=== PATIENT | female | born 1950 | race Caucasian/White ===

== ENCOUNTER 2016-08-01 02:46 | Emergency (ER) | payer MEDICARE ==
[~2016-08-01 02:46] MED LIST: LOPRESSOR DPS100 MG PO; MAPAP PM (TYLEN1 TAB PO; NORCO 5-325 TA1 EACH PO; OMNICEF DPS300 MG PO; PERCOCET 5 DPS1 TAB PO; PYRIDIUM200 MG PO; THERA1 EACH PO; ULTRAM DPS50 MG PO; ZOFRAN4 MG PO
--- NOTE | 2016-08-02 00:40 | ER ---
ADMIT: 08/01/2016 RM/LOC: ER [facility] MR#: [id number] 2620 [facility] [address] [place] [phone] LON LEDBETTER [address] [place] [address] Emergency Room Report SEX: F AGE: 66 : 1950 DATE: 08/01/2016 TIME: 0246 Please refer to my T-sheet for complete H and P. HISTORY OF PRESENT ILLNESS: Briefly, the patient is a 66-year-old who comes in with flank pain for 5 hours. She has had multiple kidney stones, multiple lithotripsies. She states this feels like it is left flank she had a urine infection a month ago. She rates it 7/10, sharp pain. PHYSICAL EXAMINATION: VITAL SIGNS: Stable. Blood pressure is little high 187/76. GENERAL: Mild distress. HEENT: Grossly normal. LUNGS: Clear. HEART: Regular. ABDOMEN: She is tender in the left flank. EMERGENCY DEPARTMENT COURSE: We ordered an IV, was going to give her medications. She went to the bathroom, gave us a sample, where she passed what appeared to be a very firm object, possibly mucus, however, could not rule out what appeared to be like a worm-like structure. Her pain completely resolved at that point. Her CBC came back normal except white count 11.5. Chemistries normal except glucose 198. UA normal except 69 white cells, 348 red cells, 3+ blood. I gave her dose of Cipro and she was ready for discharge. Her pain was gone. ASSESSMENT: 1. Flank pain. 2. Hematuria. 3. Urine pathological structure that is pending pathology. PLAN: We will put her on Cipro 500 b.i.d. for 7 days. Fluids. I want her to follow up the path report with Dr. Mccain. Return here if worse. Thomas Zavala MD/ makayla JOB #: [id number] CC: Thomas Zavala MD, Attending Physician Nighat Mccain MD, Family Physician
[2016-08-07] MEDS ORDERED: GLUCOPHAGE-DPS500 MG PO (11:15)
[2016-08-07] MEDS ORDERED: DULOXETINE HCL30 MG PO (11:16)
[2016-08-07] MEDS ORDERED: CIPRO DPS500 MG PO (11:17)
[2016-08-07] MEDS ORDERED: MAPAP PM (TYLEN1 TAB PO (11:17)
[2016-08-07] MEDS ORDERED: PERDIEM15 MG PO (11:17)
[2016-08-31] MEDS ORDERED: AZO STANDARD95 MG PO (13:33)
[2016-08-31] MEDS ORDERED: ZOFRAN8 MG PO (13:34)
[2016-08-31] MEDS ORDERED: OMNICEF DPS300 MG PO (13:34)
== END 2016-08-01 04:15 | disposition home or self-care (01) ==
LOC: ER 02:46
DX: R31.9 Hematuria, unspecified (principal); E11.9 Type 2 diabetes mellitus without complications; I10 Essential (primary) hypertension; Z90.710 Acquired absence of both cervix and uterus; Z90.49 Acquired absence of other specified parts of digestive tract

== ENCOUNTER 2016-08-03 12:31 | Inpatient (IN) | payer MEDICARE ==
[~2016-08-03] VITALS: Ht 157.5 cm; Wt 103.5 kg
--- NOTE | 2016-08-07 06:52 | CO ---
ADMIT: 08/03/2016 RM/LOC: 529 [facility] MR#: [id number] [address] [address] LON MARQUEZ [address] [place] [address] Consultation SEX: F AGE: 66 : 1950 DATE OF CONSULTATION: 08/06/2016 ATTENDING PHYSICIAN: Nighat Mccain MD CONSULTING PHYSICIAN: Troy Gimenez MD PROBLEM: Left flank pain. HISTORY OF PRESENT ILLNESS: This is a 66-year-old female, who is a long time patient of ours having been followed for a large stone within the left renal unit, which she has been reluctant to treat up until now. She presented to the emergency room on 08/03/2016, complaining of severe left flank pain, which had been going on for the past 48 hours prior to that. A renal colic CT demonstrated a large 1.5 x 2 cm stone in the left renal pelvis near the left ureteropelvic junction. No hydronephrosis was noted. This was unchanged in size and position since her last study on 10/27/2015. There was some mild dilation of the renal pelvis and proximal ureter, but again, this appeared to be stable. She was passing some large mucous plugs. Since her hospitalization, she has went on Cipro antibiotic therapy and is feeling much improved. She has had no nausea or vomiting and no gross hematuria. PAST HISTORY HISTORY: MEDICATIONS: 1. Metoprolol 100 mg daily. 2. Metformin 500 mg b.i.d. 3. Tramadol 3 times a day p.r.n. 4. Cipro, which was started in the emergency room. 5. Multiple vitamin. 6. Tylenol PM. ALLERGIES: Sulfa, codeine, Ceftin, and morphine. OPERATIONS: Hysterectomy, also recurrent stone disease with treatment. REVIEW OF SYSTEMS: She does have a history of essential hypertension, adult onset diabetes mellitus type 2, and arthritis. FAMILY HISTORY: Negative for urologic problems. SOCIAL HISTORY: She lives with her . Does not smoke. PHYSICAL EXAMINATION: GENERAL: This is a healthy appearing, 66-year-old, in no acute distress. HEENT: Unremarkable. NECK: Supple adenopathy. ABDOMEN: Soft, obese, and nontender especially in the left upper quadrant and flank region. No masses were palpable. EXTREMITIES: Full range of motion without deformity. NEUROLOGICAL: She is grossly intact. ADMIT: 08/03/2016 RM/LOC: 529 [facility] MR#: [id number] [address] [address] LON MARQUEZ [address] [place] [address] Consultation SEX: F AGE: 66 : 1950 ASSESSMENT: Bilateral renal calculi with a large left renal calculus, which is essentially unchanged in position in size since October of last year. PLAN: I did discuss with Ms. Marquez the need to surgically remove her stone. It is my feeling that given the size of stone, the best definitive form of treatment would be percutaneous ultrasonic lithotripsy, which she is in agreement with at this time. This will be scheduled to be performed in the near future. Thank you for allowing us to assist you in the care of Ms. Marquez. Troy Gimenez MD/ makayla JOB #: [id number] CC: Nighat Mccain MD, Attending Physician Nighat Mccain MD, Family Physician Nighat Mccain MD
[2016-08-07] MEDS ORDERED: GLUCOPHAGE-DPS500 MG PO (11:15)
[2016-08-07] MEDS ORDERED: DULOXETINE HCL30 MG PO (11:16)
[2016-08-07] MEDS ORDERED: CIPRO DPS500 MG PO (11:17)
[2016-08-07] MEDS ORDERED: MAPAP PM (TYLEN1 TAB PO (11:17)
[2016-08-07] MEDS ORDERED: PERDIEM15 MG PO (11:17)
--- NOTE | 2016-08-07 11:58 | HP ---
ADMIT: 08/03/2016 RM/LOC: 529 [facility] MR#: [id number] ACC#: [id number] [address] [address] LON MARQUEZ [address] [place] [address] History and Physical SEX: F AGE: 66 : 1950 DATE OF SERVICE: CHIEF COMPLAINT: Left flank pain. HISTORY OF PRESENT ILLNESS: Ms. Marquez is a very pleasant 66-year-old female. She has a history of recurrent nephrolithiasis. Prior to admission, she had actually presented to the ER approximately 48 hours before with left flank pain. While in the ER, she actually had passed what appeared to be kind of a mucus appearing, what she described as it looked like a worm. It was actually sent down to pathology and was found to be just inflammatory cells, red blood cells, and white blood cells. She reports that after being in the ER, her pain was better after passing that, however, she continued to have pain and actually approximately 24 hours later or 48 hours later, she passed another kind of mucus like appearing structure. She reports that she continues to have kind of like severe bilateral low back pain as well as left side pain that radiates down to the front. She reports her bladder feels like it is constantly spasming. She notes that nothing else makes her symptoms better or worse and she really does not have any other associated symptoms. She has not had a fever or chills. She has been taking some azo which she feels like that causes nausea also. PAST MEDICAL HISTORY: Significant for: 1. Hypertension. 2. History of recurrent nephrolithiasis with a known large left kidney stone on the left. 3. Status post hysterectomy. 4. History of arthritis. 5. History of diabetes. HOME MEDICATIONS: 1. Metoprolol tartrate 100 mg p.o. daily. 2. Duloxetine mg p.o. daily. 3. Metformin 500 mg p.o. b.i.d. 4. Tramadol 1-2 tabs p.o. t.i.d. p.r.n. 5. Cipro which she was started on in the ER. 6. Multivitamin. 7. Tylenol PM. 8. p.o. b.i.d. FAMILY HISTORY: Positive for heart disease. Father dying in his mid 50s of an VA. Brother having a CABG in 40s. Younger brother with stent. Otherwise mother side of the family is positive for Parkinson's. ALLERGIES: SULFA, CODEINE, CEFTIN, AND MORPHINE. SOCIAL HISTORY: She does not smoke or use any significant alcohol. 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 REVIEW OF SYSTEMS: Obtained, was otherwise essentially negative. ADMIT: 08/03/2016 RM/LOC: 529 [facility] MR#: [id number] [address] [place] [id number] ANATOLYLON Woodruff [address] [place] [address] History and Physical SEX: F AGE: 66 : 1950 PHYSICAL EXAMINATION: GENERAL: She appears to be in moderate distress. She is uncomfortable. HEENT: Pupils round and reactive. Oropharynx dry mucous membranes. NECK: Supple. HEART: Normal rate with a regular rhythm. LUNGS: Clear to auscultation. ABDOMEN: Obese, soft. Bowel sounds are present. She does complain of left lower flank pain on palpation. EXTREMITIES: Have no evidence of edema. ASSESSMENT/PLAN: 1. Known left-sided nephrolithiasis. 2. Left flank pain. 3. Nausea. 4. Passing mucus structures. 5. Diabetes mellitus. 6. Hypertension. At this time, we will go ahead and admit the patient. We will give her some IV fluids. We will recollect the UA. We will do a CT of her abdomen and pelvis. We will get Urology involved if needed. We will go ahead and plan to give her something for pain and nausea and monitor closely. Nighat Mccain MD/ makayla JOB #: [id number] CC: Nighat Mccain, Attending Physician Nighat Mccain, Family Physician
--- NOTE | 2016-08-30 05:52 | DS ---
ADMIT: 08/03/2016 RM/LOC: 529 [facility] MR#: [id number] [facility]#: [id number] [address] [facility] [address] [place] [address] LON LEDBETTER [address] [place] [address] Discharge Summary SEX: F AGE: 66 : 1950 ADMISSION DATE: 08/03/2016 DISCHARGE DATE: 08/06/2016 DISCHARGE DIAGNOSES: 1. Abdominal pain. 2. Renal calculus. 3. Hypertension. 4. Osteoarthritis. 5. Diabetes mellitus type 2. 6. Family history of ischemic heart disease. HOSPITAL COURSE: The patient was admitted after failed outpatient treatment. She has actually been passing some large mucous lesions. She was given IV fluids, she has an IV, antiemetics, IV pain medicines, as well as IV antibiotics. Overall, she was feeling much better at the time of dismissal. She was seen by Urology who came up with a plan for discharge planning. Overall, the plan was for patient to be discharged home and follow up with outpatient Urology. DISCHARGE MEDICATIONS: 1. Metoprolol 100 mg p.o. q.a.m. 2. Duloxetine 30 mg p.o. q.a.m. 3. Metformin 500 mg p.o. b.i.d. 4. Tramadol 50 mg 1-2 p.o. t.i.d. p.r.n. 5. Cipro 500 mg p.o. b.i.d. 6. Multivitamin. 7. Tylenol PM at bedtime. 8. Manager Government b.i.d. Follow up with Dr. Mccain in the next 2 weeks. ADA diet. She otherwise is to keep her followup with Urology as planned, and she is to push p.o. fluids after she leaves. I spent over 35 minutes in the discharge planning and coordination care. Nighat Mccain MD/ shari JOB #: [id number] CC: Nighat Mccain MD, Attending Physician Nighat Mccain MD, Family Physician
[2016-08-31] MEDS ORDERED: AZO STANDARD95 MG PO (13:33)
[2016-08-31] MEDS ORDERED: OMNICEF DPS300 MG PO (13:34)
[2016-08-31] MEDS ORDERED: ZOFRAN8 MG PO (13:34)
== END 2016-08-06 18:25 | disposition home or self-care (01) | DRG 694 ==
LOC: 5MS 12:31
PROVIDERS: ADMIT Internal Medicine
DX: N20.0 Calculus of kidney (principal); Z68.41 Body mass index [BMI] 40.0-44.9, adult; I10 Essential (primary) hypertension; E66.01 Morbid (severe) obesity due to excess calories; M19.90 Unspecified osteoarthritis, unspecified site; E11.9 Type 2 diabetes mellitus without complications; Z79.84 Long term (current) use of oral hypoglycemic drugs; Z82.49 Family history of ischemic heart disease and other diseases of the circulatory system

== ENCOUNTER 2016-08-28 08:13 | Observation (INO) | payer MEDICARE ==
[~2016-08-28] VITALS: Ht 157.5 cm; Wt 101.5 kg
--- NOTE | ~2016-08-28 | OR ---
ADMIT: 08/28/2016 RM/LOC: 619 [facility] MR#: [id number] [address] [address] LON LEDBETTER [address] [place] [address] Operative/Delivery Room Report SEX: F AGE: 66 : 1950 SURGERY DATE: 08/28/2016 SURGEON: Troy Gimenez MD PREOPERATIVE DIAGNOSIS: Large left renal calculus. POSTOPERATIVE DIAGNOSIS: Large left renal calculus. OPERATION: Left percutaneous ultrasonic lithotripsy. ANESTHETIC: General. INDICATION FOR PROCEDURE: This 66-year-old female has noted to have a large left renal calculus and is admitted now for treatment. DESCRIPTION OF OPERATION: After a suitable general endotracheal anesthetic was obtained, a #16-Chinese Alberto catheter was then passed per urethra into the bladder and connected to straight drainage. The patient was then placed in the prone position on the operating table. The 2 wires, which were placed previously by special procedures were then secured at the skin level. The patient was then prepped and draped in usual sterile fashion. The first wire was used as a safety wire and was secured to the skin with a 2-0 silk suture. The 2nd wire, which was used a working wire was then used to place through a NephroMax, the balloon dilating catheter. The NephroMax was then inserted under fluoroscopy till tip of the balloon dilating catheter was in the renal pelvis. The balloon was then inflated to 10 atmospheres of pressure for a period of approximately 5 minutes. The sheath was then placed over the NephroMax balloon dilating catheter and advanced under fluoroscopic control until the tip of the sheath was in the renal pelvis. The NephroMax balloon dilating catheter was then removed over the Glidewire. The nephroscope was inserted over the Glidewire into the renal pelvis, and after it was determined that the scope was in the renal pelvis, the working wire was then removed. There was a large stone in the left renal pelvis greater than 2.5 cm. The ultrasound wand was then inserted into the renal pelvis, and the stone was then removed in its entirety using the ultrasound unit. No stone fragments ADMIT: 08/28/2016 RM/LOC: 619 [facility] MR#: [id number] [address] [facility] [address] [place], [place] [address] LON LEDBETTER [address] [place] [address] Operative/Delivery Room Report SEX: F AGE: 66 : 1950 were identified throughout the renal pelvis and nothing appeared to be at the level of the ureteropelvic junction. This was confirmed on fluoroscopy. The nephroscope was then removed as well as the nephrostomy sheath. Over the safety wire, a re-introductory nephrostomy catheter was inserted position in the catheter in the proximal ureter and in the renal pelvis. A nephrostogram was then obtained revealing adequate placement of the nephrostomy in the renal pelvis. There was no gross extravasation of contrast noted. The nephrostomy was then secured to the skin with a 2-0 silk suture. Sterile dressings were applied. The patient is having tolerated the procedure well, was taken to the recovery room in satisfactory condition. Troy Gimenez MD/ makayla JOB #: [id number] CC: Troy Gimenez MD, Attending Physician Nighat Mccain, Family Physician Myranda Valdes MD
[~2016-08-28 08:13] MED LIST changes: +CIPRO DPS500 MG PO; +DULOXETINE HCL30 MG PO; +GLUCOPHAGE-DPS500 MG PO; +PERDIEM15 MG PO
[2016-08-31] MEDS ORDERED: AZO STANDARD95 MG PO (13:33)
[2016-08-31] MEDS ORDERED: ZOFRAN8 MG PO (13:34)
[2016-08-31] MEDS ORDERED: OMNICEF DPS300 MG PO (13:34)
--- NOTE | 2016-09-09 09:06 | DS ---
ADMIT: 08/28/2016 RM/LOC: 619 [facility] MR#: [id number] [address] [place] [address] [place], [place] [address] LON LEDBETTER [address] [place] [address] Discharge Summary SEX: F AGE: 66 : 1950 ADMISSION DATE: 08/28/2016 DISCHARGE DATE: 08/30/2016 DISCHARGE DIAGNOSIS: Large left renal calculus. OPERATIONS AND PROCEDURES: 08/28/2016, left percutaneous ultrasonic lithotripsy. BRIEF HISTORY: This 66-year-old female had been initially evaluated and admitted through the emergency room several weeks ago with left flank pain. She does have a known stone within the left renal unit and CT scan demonstrated stone to be approximately 2.5 cm in the left renal pelvis. She has been on antibiotic therapy because of recurrent urinary tract infections up until this admission. She is admitted now for left percutaneous ultrasonic lithotripsy. LABORATORY DATA: Sodium is 138, potassium 4.9, chloride 103, CO2 26, BUN 16, glucose 240, creatinine 0.8. CBC showed a white count of 8200 and hematocrit of 43.7. COURSE IN THE HOSPITAL: The patient was admitted with diagnosis of a large left renal calculus. On the day of admission, she underwent a left percutaneous ultrasonic lithotripsy without complications. Postoperatively, she did very well. Complained of minimal left flank pain despite her left nephrostomy catheter. Her temperature remained normal and she was on a regular diet. She was maintained on SECURITY TECH for pain control however which she used sparingly. On the second postoperative day, a nephrostogram was performed revealing prompt drainage into the bladder without evidence of extravasation or retained stone fragments. The nephrostomy was then clamped for a period of 2 hours without increased drainage around the nephrostomy, ADMIT: 08/28/2016 RM/LOC: 9 [facility] MR#: [id number] 2620 [facility] [address] [place] [address] LON LEDBETTER [address] [place] [address] Discharge Summary SEX: F AGE: 66 : 1950 increased temp or increased flank pain. The nephrostomy was then removed without incident. The patient was then discharged from the hospital on her 2nd postoperative day to return to the office in 2 weeks with a followup KUB. Discharge medications include at this time those which she was taking prior to this hospitalization except for the Cipro which will be discontinued. She was sent home in addition to these medications on Omnicef 300 mg twice a day for 10 days, Zofran 8 mg q.4 hours p.r.n. nausea #10 with no refill. She does have tramadol at home which she would use for pain if necessary. I have asked that she increase her fluid intake with no special diet given. Wound instructions were given prior to discharge. Troy Gimenez MD/ horacio JOB #: [id number] CC: Janes Gimenez, Attending Physician Nighat Mccain MD, Family Physician Nighat Mccain MD
== END 2016-08-30 15:10 | disposition home or self-care (01) ==
LOC: WOR 08:13 → 6PED 08:13 → WOR 08:26 → UNDOADMOB 08:26 → WOR 08:29 → SSS 10:56 → 6PED 14:29 → EDSTATUS 15:38 → 6PED 08-30 15:10
PROVIDERS: ADMIT Specialist
PROC: 0TC13ZZ Extirpation of Matter from Left Kidney, Percutaneous Approach (ICD-10-PCS; principal; 2016-08-28)
DX: N20.0 Calculus of kidney (principal); I10 Essential (primary) hypertension; E66.9 Obesity, unspecified; K21.9 Gastro-esophageal reflux disease without esophagitis; M19.90 Unspecified osteoarthritis, unspecified site; E11.9 Type 2 diabetes mellitus without complications; Z88.2 Allergy status to sulfonamides; Z88.6 Allergy status to analgesic agent; Z88.8 Allergy status to other drugs, medicaments and biological substances; Z79.899 Other long term (current) drug therapy; Z90.710 Acquired absence of both cervix and uterus